=== PATIENT | female | born 1955 | race Caucasian/White ===

== ENCOUNTER 2019-02-24 07:42 | Inpatient (IN) | payer MEDICAID ==
[~2019-02-24] VITALS: Ht 165.1 cm; Wt 80.1 kg
--- NOTE | 2019-02-24 07:50 | NUR ---
PT BIBRA FROM SNF C/O ABD PAIN, UNABLE TO LOCALIZED PAIN BUT PT IS HOLDING PRESSURE ON LUQ. PT DENIES THAT PRESSURE HELPS THE PAIN, STATES "IT HURTS ALL THE TIME" HOWEVER UPON ASSESSMENT PT PREFERS TO HOLD PRESSURE. REPORTS NO BM X2 DAYS. REPORTS RECENT ABD SURGERY "ON MY GALLBLADDER" AT [facility]. RESP EVEN UNLABORED BUT SOMEWHAT TACHY D/T DISCOMFORT, WRITHING IN BED. DENIES RESP DISTRESS. NO CP. SKIN WARM DRY. IN ER BED 09 ON MONITOR
[2019-02-24] MEDS ORDERED: MORPHINE SULFATE INJ 2 MG/ML DISP.SYRIN IV ONE (08:00)
[2019-02-24] MEDS ORDERED: ONDANSETRON HCL/PF 4 MG/2 ML VIAL IVP ONE (08:00)
[2019-02-24] MEDS ORDERED: IV NS 0.9% 1,000 ML BAG IV ONE (08:00)
[2019-02-24] MEDS ORDERED: ACET-868 PO (08:01)
[2019-02-24] MEDS ORDERED: POLY17PO4 PO (08:01)
[2019-02-24] MEDS ORDERED: MAGN400O6 PO (08:01)
[2019-02-24] MEDS ORDERED: QUET300T2 PO (08:01)
[2019-02-24] MEDS ORDERED: IPRA12.9 IH (08:01)
[2019-02-24] MEDS ORDERED: ALBU2.5V38 IH (08:01)
[2019-02-24] MEDS ORDERED: BISA10SU11 RC (08:01)
[2019-02-24] MEDS ORDERED: BENA20TA9 PO (08:01)
[2019-02-24] MEDS ORDERED: FLUT16SP16 BNOSTRILS (08:01)
[2019-02-24] MEDS ORDERED: GABA-534 PO (08:01)
[2019-02-24] MEDS ORDERED: TIOT18CA3 IH (08:01)
[2019-02-24] MEDS ORDERED: TRAM50TA2 PO (08:01)
[2019-02-24] MEDS ORDERED: NA P133E RC (08:01)
[2019-02-24] MEDS ORDERED: SENN-168 PO (08:01)
[2019-02-24] MEDS ORDERED: ESCI5TAB PO (08:01)
--- NOTE | 2019-02-24 08:01 | NUR ---
22G IV PRESENT FROM FACILITY, UNABLE TO FLUSH. NEW IV STARTED LFA 20G. FLUSHES WELL WITH NO PAIN BUT UNABLE TO DRAW BLOOD FROM THE LINE. LAB NOTIFIED
[2019-02-24] MEDS ORDERED: MORPHINE SULFATE INJ 4 MG/ML DISP.SYRIN ONE (08:03)
[2019-02-24] MEDS ORDERED: ONDANSETRON HCL/PF 4 MG/2 ML VIAL ONE (08:03)
--- NOTE | 2019-02-24 08:04 | NUR ---
FAMILY SUPPORT COORDINATOR AT BEDSIDE
--- NOTE | 2019-02-24 08:13 | NUR ---
PT TO CT
[2019-02-24 08:22] LABS: BASOPHILS % (AUTO) 0.6 % (0.0-2.0); EOSINOPHILS % (AUTO) 5.5 % (0.0-6.0); HEMATOCRIT 42 % (33-45); HEMOGLOBIN 14.2 g/dL (11.5-14.8); LYMPHOCYTES # (AUTO) 0.8 /CMM (0.8-4.8); LYMPHOCYTES % (AUTO) 10.7 % (20.0-44.0); MEAN CORPUSCULAR HGB CONC 34 g/dl (31.0-36.0); MEAN CORPUSCULAR VOLUME 91 fL (82-100); MONOCYTES # (AUTO) 0.9 /CMM (0.1-1.30); MONOCYTES % (AUTO) 11.1 % (2.0-12.0); NEUTROPHILS # (AUTO) 5.5 /CMM (1.8-8.9); NEUTROPHILS % (AUTO) 72.1 % (43.0-81.0); PLATELET COUNT (AUTO) 284 /CMM (150-450); RED BLOOD CELL COUNT(AUTO) 4.55 MIL/uL (4.0-5.2); WHITE BLOOD COUNT (AUTO) 7.7 K/uL (4.3-11.0)
--- NOTE | 2019-02-24 08:27 | NUR ---
PT RETURNED FROM CT
[2019-02-24 08:30] LABS: CALCIUM, SERUM 8.9 mg/dL (8.5-10.1); CARBON DIOXIDE 26 mmol/L (21-32); CHLORIDE 102 mmol/L (98-107); CREATININE 1.1 mg/dL (0.6-1.3); GLUCOSE 102 mg/dL (74-106); POTASSIUM 3.9 mmol/L (3.5-5.1); SODIUM SERUM 137 mmol/L (136-145); UREA NITROGEN, BLOOD 25 mg/dL (7-18)
[2019-02-24 08:35] LABS: ALANINE AMINOTRANSFERASE 36 U/L (12-78); ALBUMIN 3.3 g/dL (3.4-5.0); ALKALINE PHOSPHATASE 107 U/L (46-116); ASPARTATE AMINOTRANSFERASE 18 U/L (15-37); BILIRUBIN,DIRECT 0.6 mg/dL (0.0-0.2); BILIRUBIN,TOTAL 1.2 mg/dL (0.2-1.0); LIPASE 281 U/L (73-393); TOTAL PROTEIN, SERUM 7.1 g/dL (6.4-8.2)
--- NOTE | 2019-02-24 08:42 | NUR ---
REINFORCED TO PT THAT URINE STILL NEEDS TO BE COLLECTED. PT ON PHONE AND STATES SHE WILL GIVE SAMPLE LATER.
[2019-02-24] MEDS ORDERED: MAGNESIUM CITRATE 296 ML BOTTLE ONE (09:26)
[2019-02-24] MEDS ORDERED: MAGNESIUM CITRATE 296 ML BOTTLE PO ONE (09:30)
--- NOTE | 2019-02-24 10:00 | NUR ---
PT C/O PAIN AGAIN, NOTIFIED MD. RECEIVED VERBAL ORDER FOR BENTYL 20MG IM X1.
[2019-02-24] MEDS ORDERED: DICYCLOMINE HCL INJ 20 MG/2 ML AMPUL IM ONE ×2 (10:06→10:30)
--- NOTE | 2019-02-24 10:06 | NUR ---
CALLED NURSING HEAD ATHLETIC TRAINER FOR MS BED.
--- NOTE | 2019-02-24 10:24 | NUR ---
SPOKE WITH MAXIMINO FROM [facility]. PER MAXIMINO, PT CAN STAY AT [facility]
--- NOTE | 2019-02-24 10:31 | NUR ---
PAGED DR QUESADA
[2019-02-24] MEDS ORDERED: METOCLOPRAMIDE HCL 10 MG/2 ML VIAL IV ONE (11:00)
--- NOTE | 2019-02-24 11:09 | NUR ---
REPORT GIVEN TO ELYSIA NEWBERRY FOR ADMISSION
[2019-02-24] MEDS ORDERED: METOCLOPRAMIDE HCL 10 MG/2 ML VIAL ONE (11:11)
--- NOTE | 2019-02-24 11:34 | NUR ---
NGT INSERTED R NARE, PLACEMENT VERIFIED BY ASPIRATION. IMMEDIATE DRAINAGE OF 500ML CLEAR YELLOW/GREEN DRAINAGE. DR QUESADA AT BEDSIDE. PER DR QUESADA, NO INDICATION FOR XRAY VERIFICATION.
--- NOTE | 2019-02-24 12:04 | NUR ---
PT TRANSPORTED TO [facility] IN STABLE CONDITION ON [facility] WITH FRIEND AT THE SIDE.
--- NOTE | 2019-02-24 12:15 | NUR ---
METAL PUNCH PRESS OPERATOR NOTES PATIENT ADMITTED FROM ER 64 Y/OLD FEMALE MED/SURGE ROOM 309 BED B, ON DX ON POSTOPERATIVE ILEUS. PATIENT A/O X4, ON ACUTE PAIN LEFT UMBICAL REGION 03/14 PER PATIENT REQUEST. V/S TAKEN T-97.8, P-88, R-20, BP-154/84, O2-92 ROOM AIR. SKIN ASSESSMENT DONE PATIENT HAS A RECENT LAPAROSCOPIC CHOLECYSTECTOMY ON , AND HAS SMALL 4 INCISIONS PINK, INTACT. PICTURE TAKEN. PONCE HAS IV ACCESS ON LEFT FA INTACT, NG TUBE INTACT, NPO. GIVEN MG CITRATE ON ER BUT STILL NO BOWEL MOVEMENT, ABDOMEN DISTENDED, HYPOACTIVE BOWEL MOVEMENT. BELONGING CHECKED. SON NEXT TO THE BED. Dr QUESADA AWARE OF NEW PATIENT NAD MEDICATION. CALL LIGHT WITHIN TO REACH. SAFETY PRECAUTION MAINTAINED ALL THE TIME.
[2019-02-24 12:23] VITALS: BP 147/86
[2019-02-24 12:47] VITALS: BP 154/84
--- NOTE | 2019-02-24 12:54 | NUR ---
RN NOTES PATIENT COMPLAINING OF PAIN 10/10 PER PAIN SCALE ON LEFT UMBILICAL REGION , CALLED DR QEUSADA AND GET TO MORPHINE SULFATE 4 MG/ML IV PUSH X1. ORDER TAKEN AND CARRIED OUT.
[2019-02-24] MEDS ORDERED: MORPHINE SULFATE INJ 4 MG/ML DISP.SYRIN IV ONE (13:00)
--- NOTE | 2019-02-24 13:01 | NUR ---
RN NOTES ADMINISTERED MORPHINE SULFATE 4 MG/ML IV PUSH X1 AT THIS TIME FOR PAIN 10/10 PER PATIENT REQUEST, V/S TAKEN BP 154/84,, P-88, R-20, SON NEXT TO THE BED, CALL LIGHT WITHIN TO REACH. KEEP HOB ELEVATED, CONTINUED MONITORING.
[2019-02-24] MEDS ORDERED: Z GUARD REMEDY 2 OZ OINT TP PRN (13:30)
[2019-02-24] MEDS: IV 1/2NS 1000 ML 1,000 ML IV PRN (14:46)
[2019-02-24 16:00] VITALS: BP 142/86
[2019-02-24] MEDS: ONDANSETRON HCL/PF 4 MG/2 ML VIAL IVP PRN ×2 (17:10→22:07)
[2019-02-24] MEDS: MORPHINE SULFATE INJ 2 MG/ML DISP.SYRIN IV PRN ×2 (17:11→22:07)
--- NOTE | 2019-02-24 17:11 | NUR ---
RN NOTES ADMINISTERED MORPHINE 4 MG/ML /IV PUSH FOR PAIN 10/10 PER PATIENT REQUEST, AND ZOFRAN 4 MG/ML IV PSH FOR NAUSEA, V/S TAKEN BP 142/86, P-85, R-20, CONTINUED MONITORING.
--- NOTE | 2019-02-24 17:23 | NUR ---
RN NOTES GET ORDER FOR NG TUBE INTERMITTENT LOW SUCTION.
[2019-02-24] MEDS ORDERED: GABAPENTIN 300 MG CAPSULE PO PRN (18:00)
[2019-02-24] MEDS ORDERED: ALBUTEROL FS 2.5 MG/3 ML VIAL.NEB IH PRN (18:00)
[2019-02-24] MEDS ORDERED: MAGNESIUM HYDROXIDE 30 ML UDC PO PRN (18:00)
[2019-02-24] MEDS ORDERED: NA PHOS,M-B/NA PHOS,DI-BA 1 EA ENEMA RC PRN (18:00)
[2019-02-24] MEDS ORDERED: ACETAMINOPHEN 325 MG TABLET PO PRN (18:00)
[2019-02-24] MEDS ORDERED: IPRATROPIUM NEB FS 0.5 MG/2.5 ML AMPUL.NEB NEB PRN (18:00)
[2019-02-24] MEDS ORDERED: BISACODYL SUPP (10 MG) 10 MG/SUPP.RECT SUPP.RECT RC PRN (18:00)
--- NOTE | 2019-02-24 18:30 | NUR ---
RN NOTES MEDICATION WERE ADMINISTERED FOR PAIN, AND NAUSEA EFFECTIVE. PATIENT NPO, NG TUBE INTACT WITH LOW INTERMITTENT SUCTIONING . INFUSING 0.45 MS AT 75 ML/HR ON LEFT FOREARM INTACT, PATIENT TURN AND REPOSTION SELF IN THE BED. ENDORSED ONCOMING NURSE FOLLOW PLAN OF CARE.
[2019-02-24 19:00] VITALS: BP 145/75
[2019-02-24] MEDS ORDERED: METOCLOPRAMIDE HCL 10 MG/2 ML VIAL IV SCH (19:00)
--- NOTE | 2019-02-24 19:00 | NUR ---
MS RN OPENING NOTES Received patient A/O x4, awake on bed on semi-Zee's position on bed. With R nares NGT attached to intermittent suction with minimal greenish secretion noted. Patient on NPO, per GI MD, hold all PO meds, MD aware of the due medications. Patient is okay with ice chips. Provided ice chips to patient for dry mouth. With peripheral IV line LFA G# 20 with 1/2 NS infusing well @ 75ml/hr as ordered, no s/sx of infiltration noted. Patient no complaints of pain at this time. O2 saturation 86%, repositioned patient to Zee's position. Call light within easy reach. Will continue to monitor accordingly.
[2019-02-24 20:00] VITALS: BP 145/75
[2019-02-24] MEDS ORDERED: PANTOPRAZOLE 40 MG VIAL ONE (20:14)
[2019-02-24] MEDS: PANTOPRAZOLE 40 MG VIAL IV SCH (20:17)
--- NOTE | 2019-02-24 20:28 | NUR ---
MS RN NOTES O2 saturation remained 86%. Kept patient HOB elevated, maintined patient's position into Zee's, ensuring patient is comfortable. Administered O2 inhalation via NC @ 2LPM, PRN as ordered. Rechecked O2 sat, now on 92%. Will continue to monitor accordingly.
[2019-02-24] MEDS: QUETIAPINE FUMARATE 100 MG TABLET PO SCH (21:36)
[2019-02-24] MEDS: SENNOSIDES 8.6 MG TABLET PO SCH (21:36)
--- NOTE | 2019-02-24 21:51 | NUR ---
MS RN NOTES Patient intermittently asleep, on O2 inhalation @ 2LPM saturating well 96%. Attempted to turn off O2, saturation decreased to below 90%. Will kept patient on O2 inhalation throughout the night, will continue to monitor accordingly.
[2019-02-25] MEDS: MORPHINE SULFATE INJ 2 MG/ML DISP.SYRIN IV PRN ×4 (02:56→18:47)
[2019-02-25] MEDS: IV 1/2NS 1000 ML 1,000 ML IV PRN (05:33)
[2019-02-25] MEDS: METOCLOPRAMIDE HCL 10 MG/2 ML VIAL IV SCH ×3 (05:52→17:29)
--- NOTE | 2019-02-25 06:16 | NUR ---
MS RN CLOSING NOTES Patient intermittently asleep, easily awaken, on O2 inhalation via NC @ 2LPM, saturating well. No new complaints made. Medicated for pain and nausea/vomiting, noted effective. With patent NGT R nares on LIS, greenish secretion noted. Kept on NPO, provided ice chips per patient request. All nursing needs attended. Kept on bed clean, dry and comfortable. Call light within easy reach. Endorsed to the next shift.
[2019-02-25 06:58] LABS: BASOPHILS % (AUTO) 0.1 % (0.0-2.0); EOSINOPHILS % (AUTO) 2.7 % (0.0-6.0); HEMATOCRIT 39 % (33-45); LYMPHOCYTES % (AUTO) 9.3 % (20.0-44.0); MEAN CORPUSCULAR HGB CONC 33 g/dl (31.0-36.0); MEAN CORPUSCULAR VOLUME 92 fL (82-100); MONOCYTES # (AUTO) 1.1 /CMM (0.1-1.30); MONOCYTES % (AUTO) 10.6 % (2.0-12.0); NEUTROPHILS % (AUTO) 77.3 % (43.0-81.0); PLATELET COUNT (AUTO) 269 /CMM (150-450); RED BLOOD CELL COUNT(AUTO) 4.25 MIL/uL (4.0-5.2); WHITE BLOOD COUNT (AUTO) 10.3 K/uL (4.3-11.0)
[2019-02-25 07:06] LABS: ALBUMIN 2.6 g/dL (3.4-5.0); BILIRUBIN,DIRECT 0.6 mg/dL (0.0-0.2); BILIRUBIN,TOTAL 1.3 mg/dL (0.2-1.0); CALCIUM, SERUM 8.4 mg/dL (8.5-10.1); CREATININE 0.8 mg/dL (0.6-1.3); MAGNESIUM 2.1 mg/dL (1.8-2.4); PHOSPHORUS 2.7 mg/dL (2.5-4.9); POTASSIUM 4.2 mmol/L (3.5-5.1); TOTAL PROTEIN, SERUM 6.5 g/dL (6.4-8.2)
[2019-02-25] MEDS: IPRATROPIUM NEB FS 0.5 MG/2.5 ML AMPUL.NEB NEB SCH ×3 (07:35→19:49)
[2019-02-25 08:00] VITALS: BP 116/63
--- NOTE | 2019-02-25 08:00 | NUR ---
RN NOTES RECEIVED PATIENT IN THE BED A/O X3, NO ACUTE RESPIRATORY DISTRESS, NG TUBE INTACT ON LIS, V/S STABLE, PATIENT NPO, [id number] SCHEDULED MEDICATION. PATIENT TURN AND REPOSTION Q 2 HR. PATIENT SCHEDULED SMALL BOWEL FOLLOW. INFUSING NS AT LEFT FA INTACT, CALL LIGHT WITHIN TO REACH, SAFETY PRECAUTION MAINTAINED ALL THE TIME.
[2019-02-25] MEDS: ESCITALOPRAM OXALATE (10 MG) 10 MG TABLET PO SCH (09:00)
[2019-02-25] MEDS: POLYETHYLENE GLYCOL 3350 17 GM POWD.PACK PO SCH (09:00)
[2019-02-25] MEDS: FLUTICASONE PROPIONATE 16 GM BOTTLE NS SCH (09:00)
[2019-02-25] MEDS: BENAZEPRIL HCL 20 MG TABLET PO SCH ×2 (09:00→17:29)
--- NOTE | 2019-02-25 09:50 | NUR ---
rn notes administered morphine sulfate 4 mg/ml iv push for left umbilical area 03/14 per patient request v/s taken bp 116/63, p-77, continued monitoring.
[2019-02-25] MEDS ORDERED: DIATR MEGLU/DIATRIZOATE SODIUM 120 ML BOTTLE (GASTROGRAPHIN) ONE (10:15)
--- NOTE | 2019-02-25 10:29 | NUR ---
rn notes patient olive picker for small bowel follow through at this time.
--- NOTE | 2019-02-25 10:30 | NUR ---
WOUND CARE CONSULT: PT IS INDEPENDENT WITH BED MOBILITY AND CONTINENT AT THIS TIME. HEALED AREAS NOTED TO ABDOMEN, PRESENT ON ADMISSION. WILL SEE PRN. CURRENT OSIRIS SCORE IS 23.
--- NOTE | 2019-02-25 12:00 | NUR ---
rn notes patient back from small bowel study at this time,, NG tube was removed accidently in the way of patient transported back to the room . patient still NPO, continued monitoring.
--- NOTE | 2019-02-25 13:24 | NUR ---
rn notes patient has a big bowel movement at this time.
--- NOTE | 2019-02-25 14:34 | NUR ---
RN NOTES administered morphine sulfate 4 mg/ml iv push for generalized pain 03/14 per patient request, v/s taken BP-118/67, R-20, P_71, continued monitoring.
[2019-02-25 16:00] VITALS: BP 131/71
--- NOTE | 2019-02-25 17:30 | NUR ---
rn notes administered Neurontin 300 mg po prn for pain, and anxiety per patient request, continued monitoring.
[2019-02-25] MEDS: PANTOPRAZOLE 40 MG VIAL IV SCH (18:46)
--- NOTE | 2019-02-25 18:47 | NUR ---
rn notes administered morphine sulfate 4 mg/ml iv push for generalized pain 02/12 per patient request, v/s taken bp 130/68, p-78, continued monitoring.
--- NOTE | 2019-02-25 19:00 | NUR ---
RN NOTES PATIENT EAT DINNER, ADMINISTERED SCHEDULED MEDICATION. MEDICATION WERE ADMINISTERED FOR PAIN EFFECTIVE, PATIENT TURN AND REPOSTION SELF IN THE BED, INFUSING NS AT 75 ML/HR ON LEFT HAND INTACT,CALL LIGHT WITHIN TO REACH, SAFETY PRECAUTION MAINLINED ALL THE TIME. ENDORSED ONCOMING NURSE FOLLOW PLAN OF CARE.
--- NOTE | 2019-02-25 19:30 | NUR ---
MS RN NOTE: PATIENT RESTING IN BED, NO ACUTE DISTRESS NOTED. BREATHING EVEN AND UNLABORED, NO SOB NOTED. IV TO LEFT HAND IN PLACE. BED LOCKED AND IN LOWEST POSITION, CALL LIGHT IN REACH. WILL CONTINUE TO MONITOR.
[2019-02-25 20:00] VITALS: BP 147/73
[2019-02-25] MEDS: QUETIAPINE FUMARATE 100 MG TABLET PO SCH (21:21)
[2019-02-25] MEDS: SENNOSIDES 8.6 MG TABLET PO SCH (21:21)
[2019-02-26] MEDS: IV 1/2NS 1000 ML 1,000 ML IV PRN (00:27)
[2019-02-26] MEDS: METOCLOPRAMIDE HCL 10 MG/2 ML VIAL IV SCH ×5 (00:27→23:40)
[2019-02-26] MEDS: IPRATROPIUM NEB FS 0.5 MG/2.5 ML AMPUL.NEB NEB SCH ×4 (01:44→19:21)
--- NOTE | 2019-02-26 03:30 | NUR ---
MS RN NOTE: PATIENT SLEEPING IN BED, NO ACUTE DISTRESS NOTED. BREATHING EVEN AND UNLABORED, NO SOB NOTED. IV TO LEFT HAND IN PLACE. BED LOCKED AND IN LOWEST POSITION, CALL LIGHT IN REACH. WILL CONTINUE TO MONITOR.
--- NOTE | 2019-02-26 06:15 | NUR ---
MS RN NOTE: PATIENT RESTING IN BED, NO ACUTE DISTRESS NOTED. BREATHING EVEN AND UNLABORED, NO SOB NOTED. IV TO LEFT HAND IN PLACE. BED LOCKED AND IN LOWEST POSITION, CALL LIGHT IN REACH. WILL ENDORSE TO DAY NURSE TO CONTINUE WITH PLAN OF CARE.
[2019-02-26 08:00] VITALS: BP 90/55
--- NOTE | 2019-02-26 08:00 | NUR ---
RN NOTES RECEIVED PATIENT IN THE BED LYING NO ACUTE RESPIRATORY DISTRESS, V/S TAKEN BP 90/56 HELD BP MEDICATION, HOSPITALIST AWARE OF. PER HOSPITALIST CHANGE PAIN MEDICATION, AND DIET SOFT TOLERATED. PATIENT WAS COMPLAINING OF PAIN LOWER ABDOMEN. PATIENT AMBULATING USING WALKER, CALL LIGHT WITHIN TO REACH, SAFETY PRECAUTION MAINTAINED ALL THE TIME.
[2019-02-26] MEDS: POLYETHYLENE GLYCOL 3350 17 GM POWD.PACK PO SCH (08:51)
[2019-02-26] MEDS: BENAZEPRIL HCL 20 MG TABLET PO SCH ×2 (09:00→17:00)
[2019-02-26] MEDS ORDERED: HYDROCODONE/APAP 10/325MG 1 EA TABLET PO PRN (09:00)
[2019-02-26] MEDS ORDERED: HYDROCODONE/APAP 5/325MG 1 EACH TABLET PO PRN (09:00)
[2019-02-26] MEDS: ESCITALOPRAM OXALATE (10 MG) 10 MG TABLET PO SCH (10:13)
--- NOTE | 2019-02-26 10:15 | NUR ---
rn notes administered narco 10/325 mg po prn for generalized pain 01/12 per patient request, v/s taken bp 95/65, p-66, r-19, continued monitoring.
[2019-02-26] MEDS: FLUTICASONE PROPIONATE 16 GM BOTTLE NS SCH (10:16)
--- NOTE | 2019-02-26 12:00 | NUR ---
RN NOTES PATIENT ASKING MORE FOOD TO EAT, MEDICATION WERE ADMINISTERED FOR PAIN EFFECTIVE.
[2019-02-26 15:56] VITALS: BP 94/50
--- NOTE | 2019-02-26 18:30 | NUR ---
rn notes patient in the bed resting, stable, held bp medication because bp 94/56, infusing 1/2 nfs at 75 ml/hr on left hand intact. patient refused pain at this time, self care. call light within to reach. endorsed oncoming nurse follow plan of care.
[2019-02-26] MEDS: PANTOPRAZOLE 40 MG VIAL IV SCH (19:11)
[2019-02-26 20:00] VITALS: BP 91/53
[2019-02-26] MEDS: SENNOSIDES 8.6 MG TABLET PO SCH (21:05)
[2019-02-26] MEDS: QUETIAPINE FUMARATE 100 MG TABLET PO SCH (21:05)
[2019-02-27] MEDS: IPRATROPIUM NEB FS 0.5 MG/2.5 ML AMPUL.NEB NEB SCH ×2 (01:34→07:33)
[2019-02-27] MEDS: IV 1/2NS 1000 ML 1,000 ML IV PRN (05:19)
[2019-02-27] MEDS: METOCLOPRAMIDE HCL 10 MG/2 ML VIAL IV SCH (05:19)
--- NOTE | 2019-02-27 06:05 | NUR ---
MS RN NOTE: PATIENT RESTING IN BED, NO ACUTE DISTRESS NOTED. BREATHING EVEN AND UNLABORED, NO SOB NOTED. IV TO LEFT HAND LEAKING, WILL REMOVE IV AND TRY TO START A NEW IV. BED LOCKED AND IN LOWEST POSITION, CALL LIGHT IN REACH. WILL ENDORSE TO DAY NURSE TO CONTINUE WITH PLAN OF CARE.
--- NOTE | 2019-02-27 07:00 | NUR ---
MS RN NOTE: IV TO LEFT HAND REMOVED, COVERED WITH GAUZE, PRESSURE APPLIED, AND SECURED WITH TAPE. TRIED TO START A NEW IV X2 WITHOUT SUCCESS. WILL ENDORSE TO DAY NURSE TO TRY TO START A NEW IV.
[2019-02-27 07:11] LABS: EOSINOPHILS % (AUTO) 7.7 % (0.0-6.0); HEMATOCRIT 36 % (33-45); HEMOGLOBIN 11.9 g/dL (11.5-14.8); LYMPHOCYTES # (AUTO) 1.4 /CMM (0.8-4.8); LYMPHOCYTES % (AUTO) 31.4 % (20.0-44.0); MEAN CORPUSCULAR HGB CONC 33 g/dl (31.0-36.0); MEAN CORPUSCULAR VOLUME 91 fL (82-100); MONOCYTES # (AUTO) 0.3 /CMM (0.1-1.30); MONOCYTES % (AUTO) 6.9 % (2.0-12.0); NEUTROPHILS # (AUTO) 2.4 /CMM (1.8-8.9); PLATELET COUNT (AUTO) 258 /CMM (150-450); RED BLOOD CELL COUNT(AUTO) 3.91 MIL/uL (4.0-5.2); WHITE BLOOD COUNT (AUTO) 4.5 K/uL (4.3-11.0)
[2019-02-27 07:22] LABS: CREATININE 1.2 mg/dL (0.6-1.3)
[2019-02-27 08:00] VITALS: BP 99/61
== END 2019-02-27 12:00 | disposition home or self-care (01) | DRG 247 ==
LOC: ER 07:52 → MED 11:12
PROVIDERS: ADMIT Internal Medicine; ATTEND Family Medicine
DX: K56.609 Unspecified intestinal obstruction, unspecified as to partial versus complete obstruction (principal); E03.9 Hypothyroidism, unspecified; F32.9 Major depressive disorder, single episode, unspecified; I10 Essential (primary) hypertension; J45.909 Unspecified asthma, uncomplicated; K56.7 Ileus, unspecified; F41.9 Anxiety disorder, unspecified; Z88.0 Allergy status to penicillin; K57.90 Diverticulosis of intestine, part unspecified, without perforation or abscess without bleeding; K44.9 Diaphragmatic hernia without obstruction or gangrene; E80.6 Other disorders of bilirubin metabolism; Z90.49 Acquired absence of other specified parts of digestive tract
CPT/HCPCS: 36415; 71045-TC; 74250-TC; 76700-TC; 80048-TC; 80053-TC; 80061-TC; 80076-TC; 82247-TC; 82248-TC; 83690-TC; 83735-TC; 84100-TC; 84484-TC; 85025-TC; 85730-TC; 87081-TC; C9113; G0378; J0500; J2270; J2405; J2765; J3490; J7030; Q9963